=== PATIENT | female | born 1985 | race Caucasian/White ===

== ENCOUNTER 2016-12-07 20:10 | Emergency (ER) | payer MEDICAID ==
[~2016-12-07] VITALS: Ht 162.6 cm; Wt 49.4 kg
[2016-12-07] MEDS ORDERED: IBUPROFEN600 MG ORAL (20:34)
[2016-12-07] MEDS ORDERED: LEVOTHYROXINE50 MCG ORAL (20:34)
[2016-12-07] MEDS ORDERED: CARISOPRODOL350 MG ORAL (20:34)
[2016-12-07] MEDS ORDERED: LITHIUM CARBON300 MG ORAL (20:34)
[2016-12-07] MEDS ORDERED: KLONOPIN1 MG ORAL (20:34)
[2016-12-07] MEDS ORDERED: ZOFRAN4 M3 ORAL (20:34)
[2016-12-07] MEDS ORDERED: NORCO 10-325 T1 EACH ORAL (20:34)
[2016-12-07] MEDS ORDERED: DiphenhydrAMINE 50mg/ml Inj IVP ONE (21:30)
[2016-12-07] MEDS ORDERED: Morphine Sulfate 4mg/ml Inj IVP ONE (21:30)
[2016-12-07 22:50] VITALS: BP 152/92
--- NOTE | 2016-12-08 03:31 | Emergency Room Report ---
History of Present Illness General Chief Complaint: Pain Source: Patient Present Illness HPI Patient present with complaints of diffuse body pain Reports history of fibromyalgia Patient is in a rehabilitation facility and reports that she has stopped smoking her marijuana she feels that the marijuana was that she control of her pain well The facility recommended she go to the emergency room given her diffuse pain Patient is currently on [place]ap[place] and Ativan Denies any specific chest pain denies any vomiting or diarrhea Patient requesting control of her pain Allergies: Coded Allergies: PROCHLORPERAZINE (Verified Allergy, Unknown, 12/07/16) Patient History Past Medical History: see triage record Pertinent Family History: none Last Menstrual Period: a week ago Now: No Reviewed Nursing Documentation: PMH: Agreed, PSxH: Agreed Nursing Documentation-PMH Past Medical History: No History, Except For Review of Systems All Other Systems: negative except mentioned in HPI Physical Exam Vital Signs Date Time Temp Pulse Resp B/P Pulse Ox O2 Delivery O2 Flow Rate FiO2 12/07/16 20:24 97.7 95 20 152/92 97 Room Air Sp02 EP Interpretation: reviewed, normal General Appearance: well appearing, no apparent distress Head: normocephalic, atraumatic Eyes: bilateral eye EOMI, bilateral eye PERRL ENT: hearing grossly normal, normal pharynx, TMs + canals normal, uvula midline Neck: full range of motion, supple, no meningismus, no bony tend Respiratory: lungs clear, normal breath sounds, no rhonchi, no respiratory distress, no retraction, no accessory muscle use Cardiovascular #1: normal peripheral pulses, regular rate, rhythm, no edema, no gallop, no JVD, no murmur Gastrointestinal: normal bowel sounds, non tender, soft, no mass, no organomegaly, non-distended, no guarding, no hernia, no pulsatile mass, no rebound Genitourinary: no CVA tenderness Musculoskeletal: normal inspection Neurologic: oriented x3, responsive, 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, motor strength/ tone normal, sensory intact Psychiatric: mood/affect normal Skin: normal color, no rash, warm/dry, palpation normal Lymphatic: normal inspection, no adenopathy Medical Decision Making Diagnostic Impression: Primary Impression: myalgia ER Course Patient had IV established along with IV hydration and pain medication she has done significantly better throughout her stay At this time she reports that she needs to get back to her rehabilitation facility And requesting to be let go home I did also put her cures as the patient has been on monthly medications And it seems that the only medicine that she has had a decrease is a marijuana she will continue to have outpatient followup Last Vital Signs Date Time Temp Pulse Resp B/P Pulse Ox O2 Delivery O2 Flow Rate FiO2 12/07/16 22:50 97.7 20 152/92 97 Room Air 12/07/16 20:24 95 Status: improved Disposition: HOME, SELF-CARE Condition: Improved Referrals: NON PHYSICIAN (PCP) Patient Instructions: Muscle Pain, Adult Additional Instructions: Patient is provided with the discharge instructions notified to follow up with primary doctor in the next 2-3 days otherwise return to the er with any worsening symptoms. Please note that this report is being documented using [employer] technology. This can lead to erroneous entry secondary to incorrect interpretation by the dictating instrument. REBECCA [place] D.O. December 08, 2016 03:31
== END 2016-12-07 22:50 | disposition home or self-care (01) ==
LOC: EMR 21:05
DX: M79.1 Myalgia (principal); Z88.8 Allergy status to other drugs, medicaments and biological substances
CPT/HCPCS: 96374; 96375; 99284; J1200; J2270; J2405